=== PATIENT | female | born 1995 | race Caucasian/White ===

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

== ENCOUNTER 2018-01-10 09:44 | Emergency (ER) | payer MEDICAID, OTHER ==
[~2018-01-10] VITALS: Ht 167.6 cm; Wt 56.0 kg
[~2018-01-10 09:44] MED LIST: ONDA4TAB10 PO; VITA1TAB86 PO
[2018-01-10 09:50] VITALS: BP 133/95
[2018-01-10] MEDS ORDERED: BACITRACIN ZINC OINT 500U/GM, 0.9 GM ONE (10:59)
== END 2018-01-10 11:27 | disposition home or self-care (01) ==
LOC: ED 11:22
DX: S61.202A Unspecified open wound of right middle finger without damage to nail, initial encounter (principal); W23.0XXA Caught, crushed, jammed, or pinched between moving objects, initial encounter; Y93.89 Activity, other specified; Y92.009 Unspecified place in unspecified non-institutional (private) residence as the place of occurrence of the external cause; Y99.8 Other external cause status
CPT/HCPCS: 99283

== ENCOUNTER 2018-04-28 12:37 | Emergency (ER) | payer OTHER ==
[~2018-04-28] VITALS: Ht 167.6 cm; Wt 60.0 kg
[2018-04-28 13:28] LABS: CULTURE INDICATED? NO; MICROSCOPIC NOT IND
[2018-04-28 13:43] LABS: BASOPHILS # (AUTO) 0.01 x10^3/uL (0-0.3); BASOPHILS % (AUTO) 0 % (0-1); EOSINOPHILS # (AUTO) 0.07 x10^3/uL (0-0.8); EOSINOPHILS % (AUTO) 1 % (1-7); LYMPHOCYTES # (AUTO) 1.98 x10^3/uL (1-6.1); LYMPHOCYTES % (AUTO) 38 % (22-44); MD NO; MEAN CORPUSCULAR HEMOGLOBIN 28.2 pg (27.0-34.8); MEAN CORPUSCULAR HGB CONC 32.6 g/dL (32.4-35.8); MEAN CORPUSCULAR VOLUME 86.4 fL (80-100); MEAN PLATELET VOLUME 7.8 fL (7.4-10.4); MONOCYTES # (AUTO) 0.46 x10^3/uL (0-1.4); MONOCYTES % (AUTO) 9 % (2-9); NEUTROPHILS # (AUTO) 2.65 x10^3/uL (1.8-8.0); NEUTROPHILS % (AUTO) 51 % (42-75); PLATELET COUNT 252 x10^3/uL (130-400); RED BLOOD COUNT 4.82 x10^6/uL (3.82-5.3); RED CELL DISTRIBUTION WIDTH 14.2 % (9.6-15.2)
--- NOTE | 2018-04-28 13:50 | NUR ---
TO ROOM FROM LOBBY. NAD.
[2018-04-28 13:55] LABS: ALANINE AMINOTRANSFERASE 21 U/L (12-78); ALBUMIN 3.8 g/dL (3.4-5.0); ANION GAP 5 mmol/L (5-15); CALCIUM 8.6 mg/dL (8.5-10.1); CHLORIDE 112 mmol/L (98-107); CREATININE 0.56 mg/dL (0.55-1.02)
[2018-04-28 13:59] LABS: ALKALINE PHOSPHATASE 62 U/L (45-117); BILIRUBIN,TOTAL 0.4 mg/dL (0.2-1.0); TOTAL PROTEIN 8.2 g/dL (6.4-8.2)
[2018-04-28] MEDS ORDERED: KETOROLAC 30 MG/1 ML ONE ×2 (14:19→14:22)
[2018-04-28 14:27] VITALS: BP 111/60
[2018-04-28] MEDS ORDERED: KETOROLAC 30 MG/1 ML IM ONE (14:30)
== END 2018-04-28 15:15 | disposition home or self-care (01) ==
LOC: ED 14:57
DX: R10.84 Generalized abdominal pain (principal); R11.2 Nausea with vomiting, unspecified; R19.7 Diarrhea, unspecified; R51 Headache; Z90.89 Acquired absence of other organs
CPT/HCPCS: 36415; 80053; 81003; 83690; 84703; 85025; 96372; 99283; J1885

== ENCOUNTER 2018-07-26 15:48 | Emergency (ER) | payer OTHER ==
[~2018-07-26] VITALS: Ht 167.6 cm; Wt 56.5 kg
[2018-07-26 16:19] VITALS: BP 110/71
--- NOTE | 2018-07-26 16:30 | NUR ---
PT AMBULATORY TO RME FROM LOBBY WITH STEADY GAIT. NAD NOTED. RESP REGULAR AND UNLABORED. JJ PA AT BEDSIDE FOR EVAL. CALL LIGHT IN REACH. FALL PRECAUTIONS IN PLACE.
== END 2018-07-26 17:05 | disposition home or self-care (01) ==
LOC: ED 16:58
DX: F41.9 Anxiety disorder, unspecified (principal); Z76.0 Encounter for issue of repeat prescription; Z90.89 Acquired absence of other organs
CPT/HCPCS: 99283

== ENCOUNTER 2018-09-06 08:46 | Emergency (ER) | payer SELFPAY ==
[~2018-09-06] VITALS: Ht 167.6 cm; Wt 57.0 kg
[2018-09-06 09:02] VITALS: BP 110/68
== END 2018-09-06 10:03 | disposition home or self-care (01) ==
LOC: ED 09:52
DX: F32.5 Major depressive disorder, single episode, in full remission (principal); Z76.0 Encounter for issue of repeat prescription
CPT/HCPCS: 99283

== ENCOUNTER 2019-02-26 13:14 | Emergency (ER) | payer SELFPAY ==
[~2019-02-26] VITALS: Ht 167.6 cm; Wt 59.6 kg
[~2019-02-26 13:14] MED LIST changes: +SERT25TA PO
[2019-02-26 13:31] VITALS: BP 109/70
--- NOTE | 2019-02-26 13:42 | NUR ---
PT HERE WITH C/O "FLU LIKE SYMPTOMS FOR TWO WEEKS NOW." + COUGH, CONGESTION.
--- NOTE | 2019-02-26 14:25 | NUR ---
Patient/Caregiver given discharge instructions and they have confirmed that they understand the instructions. Patient ambulatory with steady gait.
== END 2019-02-26 14:29 | disposition home or self-care (01) ==
LOC: ED 14:23
DX: J06.9 Acute upper respiratory infection, unspecified (principal); R51 Headache; Z90.89 Acquired absence of other organs
CPT/HCPCS: 71046; 87081; 87880; 99284

== ENCOUNTER 2019-03-14 16:15 | Emergency (ER) | payer OTHER ==
--- NOTE | 2019-03-14 16:27 | NUR ---
NO ANSWER WHEN CALLED FOR TRIAGE @ [id number].
--- NOTE | 2019-03-14 16:36 | NUR ---
[id number]
--- NOTE | 2019-03-14 17:12 | NUR ---
NILX3
--- NOTE | 2019-03-14 18:40 | NUR ---
NOT IN LOBBY X4
== END 2019-03-14 18:41 | disposition left against medical advice (07) ==
LOC: ED 18:35
DX: R10.9 Unspecified abdominal pain (principal); R07.9 Chest pain, unspecified; Z53.21 Procedure and treatment not carried out due to patient leaving prior to being seen by health care provider